=== PATIENT | female | born 1990 | race Caucasian/White ===

== ENCOUNTER → 2022-11-26 | Outpatient (CLI) | payer OTHER, SELFPAY ==
[2022-11-27 22:06] LABS: Chlamydia By Nucleic Acid AMP Negative (Negative); Gonococcus By Nucleic Acid AMP Negative (Negative)
[2022-11-29 13:06] LABS: HPV APTIMA, High Risk Negative (Negative)
== END | disposition home or self-care (01) ==
LOC: LABSPEC 11:05
PROVIDERS: Referring Provider Obstetrics & Gynecology; Visit Provider Obstetrics & Gynecology
DX: Z34.90 Encounter for supervision of normal pregnancy, unspecified, unspecified trimester (principal)
CPT/HCPCS: 87086; 87088; 87491; 87591; 87624; 88175; G0145

== ENCOUNTER → 2023-03-23 | Outpatient (CLI) | payer OTHER, SELFPAY ==
--- NOTE | 2023-03-23 10:38 | US_ITS ---
STUDY: SECOND AND THIRD TRIMESTER OBSTETRICAL ULTRASOUND - LIMITED REASON FOR EXAM: Female, 33 years old contractions/abd pain LMP: 09/11/2022. PRIOR ULTRASOUND: No relevant prior comparison study available TECHNIQUE: Transabdominal TECHNICAL QUALITY: Adequate. FINDINGS: Limited examination was performed. measurements were not obtained and anatomy was not evaluated at this time. There is a single intrauterine fetus. The fetus is in a cephalic presentation. There is demonstrated cardiac activity with a heart rate of 150 bpm. There is a normal amniotic fluid volume. The largest amniotic fluid pocket measures 5.6 cm. The amniotic fluid index (SAROJ) is 15 cm. The placenta is anterior in location and is not low lying. There are Grade 0 placental changes. The cervix measures 5.4 cm in length. US/OB Limited (No Biometrics) IMPRESSION: 1. Single live intrauterine fetus in cephalic presentation. 2. Anterior placenta without evidence of placental abruption or previa. 3. Normal SAROJ measuring 15 cm. Electronically Signed: Geovany Jay MD at 15:28 EDT ,
== END | disposition home or self-care (01) ==
PROVIDERS: Referring Provider Advanced Practice Midwife; Visit Provider Advanced Practice Midwife
DX: O47.02 False labor before 37 completed weeks of gestation, second trimester (principal); Z3A.24 24 weeks gestation of pregnancy
CPT/HCPCS: 76815; 87070; 87086; 87205

== ENCOUNTER → 2023-04-06 | Outpatient (CLI) | payer OTHER, SELFPAY ==
--- NOTE | 2023-04-06 10:55 | US_ITS ---
STUDY: SECOND AND THIRD TRIMESTER OBSTETRICAL ULTRASOUND - LIMITED REASON FOR EXAM: Female, 33 years old size larger than dates LMP: September 14, 2022. PRIOR ULTRASOUND: Comparison is made with prior study March 23, 2023. TECHNIQUE: Transabdominal TECHNICAL QUALITY: Adequate. FINDINGS: There is a single intrauterine fetus. The fetus is in a cephalic presentation. There is demonstrated cardiac activity with a heart rate of 148 bpm. There is a normal amniotic fluid volume. The largest amniotic fluid pocket measures 7.3 cm x 5.5 cm. The amniotic fluid index (SAROJ) is 14.8 cm. The placenta is anterior in location and is not low lying. There are Grade 1 placental changes. The cervix measures 4.9 cm in length. BIOMETRY: BPD: 7.56 on the: 30 weeks, 2 days HC: 27.64 cm: 30 weeks, 2 days AC: 28.76 cm: 32 weeks, 5 days FL: 5.73 cm: 30 weeks, 0 days Age by LMP: 29 weeks, 1 days. MORAIMA by LMP: June 21, 2023. age by current US: 30 weeks, 4 days. MORAIMA by current US: June 12, 2023 Estimated weight: 1812 grams, +/- 272 grams, 98 percentile. US/OB Limited With Biometrics IMPRESSION: Single live intrauterine gestation with a mean gestational age of 29 weeks and 1 day. The measurements obtained today fall within upper limits of normal. Electronically Signed: Pitre Zazueta MD at 15:13 EDT ,
== END | disposition home or self-care (01) ==
LOC: OPUS 10:53
PROVIDERS: Referring Provider Advanced Practice Midwife; Visit Provider Advanced Practice Midwife
DX: O26.849 Uterine size-date discrepancy, unspecified trimester (principal); O09.299 Supervision of pregnancy with other poor reproductive or obstetric history, unspecified trimester; Z3A.00 Weeks of gestation of pregnancy not specified
CPT/HCPCS: 76816

== ENCOUNTER → 2023-04-06 | Outpatient (CLI) | payer OTHER, SELFPAY ==
[2023-04-06 09:41] LABS: Absolute Lymphocyte Count 1.75 X10^3/uL (0.83-4.51); Absolute Neutrophil Count 8.1 X10^3/uL (2.0-7.7); Basophil# 0.03 X10^3/uL; Basophil% 0.3 % (0-1); Eosinophils% 0.9 % (0-5); Hematocrit 37.4 % (37-47); Hemoglobin 11.8 g/dL (12.0-15.0); Lymphocyte # 1.75 X10^3/ul (0.83-4.51); Mean Corp Hgb Conc 31.6 g/dL (32-36); Mean Corpuscular Hgb 26.9 pg (27.0-32.0); Mean Corpuscular Volume 85.4 fL (81-99); Mean Platelet Vol. 10.1 fl (6.2-12.0); Monocyte# 0.78 X10^3/uL; Monocyte% 7.1 % (0-10); NRBC Flagged by Analyzer 0 % (0-5); Neutrophil % 74.3 % (47-70); Platelet Count 227 K/mm3 (150-450); RBC Distribution Width CV 13.7 % (11.6-14.6); RBC Distribution Width SD 42.8 fl (35.1-43.9); Red Blood Count 4.38 M/mm3 (4.2-5.4); White Blood Count 10.9 K/mm3 (4.4-11.0)
[2023-04-06 10:06] LABS: Glucose Challenge Gest 1H 50g 127 mg/dL (70-140)
[2023-04-06 10:45] LABS: HIV - WCH Non-Reactive (Nonreactive); Hepatitis B Surface Antigen Non-Reactive (Nonreactive); Hepatitis C Antibody Non-Reactive (Nonreactive); Rubella IgG Reactive (Nonreactive); Syphilis Antibodies Non-reactive
== END | disposition home or self-care (01) ==
LOC: LAB 08:11
PROVIDERS: Obstetrics & Gynecology; Referring Provider Registered Nurse; Visit Provider Registered Nurse
DX: Z34.90 Encounter for supervision of normal pregnancy, unspecified, unspecified trimester (principal)
CPT/HCPCS: 36415; 82950; 85025; 86703; 86762; 86780; 86803; 86850; 86900; 86901; 87340

== ENCOUNTER → 2023-04-19 | Outpatient (CLI) | payer OTHER, SELFPAY | END | disposition home or self-care (01) | PROVIDERS: Referring Provider Registered Nurse; Visit Provider Registered Nurse | DX: O23.40 Unspecified infection of urinary tract in pregnancy, unspecified trimester (principal); Z3A.00 Weeks of gestation of pregnancy not specified | CPT/HCPCS: 87086; 87088 ==

== ENCOUNTER 2023-05-07 16:40 | Outpatient (CLI) | payer OTHER, SELFPAY ==
[2023-05-07 16:53] VITALS: BP 126/74; PULSE 114
[2023-05-07 17:58] VITALS: BMI 42.2
--- NOTE | 2023-05-07 18:09 | OB.TRI.NOTE ---
HPI - General General Date of Service: 05/07/23 Chief Complaint: rule out labor HPI Narrative JASON ATWOOD, is a 33 F who presents at 33.4 with inconsistent contractions/tightening, was seen in the office by Garfield Gaffney and found to be 2 cm. sent to for prolonged monitoring and evaluation for labor. Maternal Data Information MORAIMA Calculator Estimated Delivery Date Method Current WG Current Estimate 06/21/23 Ultrasound #1 33w 4d Other Estimates 06/27/23 LMP (Certain) 32w 5d PFSH PFSH Medical History Hx of one miscarriage Hx of hemorrhage, currently Hx of transfusion of whole blood Home Medications Lactobacillus acidophilus and rhamnosus 15 billion cell capsule (Probiotic) cap PO 11/10/22 [History Last Taken Unknown] cyanocobalamin-liver extract tablet tab PO 11/10/22 [History Last Taken Unknown] magnesium glycinate 400 mg PO DAILY 11/10/22 [History Last Taken Unknown] magnesium malate, chelate 400 mg PO DAILY 11/10/22 [History Last Taken Unknown] Allergy/AdvReac Type Severity Reaction Status Date / Time progesterone Allergy Intermediate Hives Verified 05/07/23 11:01 Surgical History Previous section [place] teeth extracted Social History adopted: No household members: spouse and children number of children: 5 current occupational status: unemployed current occupation: homemaker current occupational exposures/hazards: No pets and animals: Yes pets and animals: dog(s) history of recent travel: No sexually active: Yes Smoking Status: Never smoker alcohol intake: current details: Not while substance use type: does not use well-balanced diet: daily or most days caffeine: Yes Type: coffee Number of servings: 1 eating out: 1-3 times/week during the past year weight has: increased > 10 lbs what type of physical activity do you participate in: weight training and other details: cardio- dance, biking, walking frequency: 5-6 times per week duration: 15-30 minutes/day zaynab/restorationist: Gnosticist seatbelt use: always do you feel safe at home: Yes 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 Date Name GA/Weeks Outcome Route Bth Weight Infant Gen Labor Lgth Anesthesia Del Locatn Provider FOB 12/18/15 Tamiko live - full term 8#9oz Female epidural [facility] 02/16/17 Nereyda live - full term 8#10oz Female epidural [facility] 08/02/18 Margi-Twin Fraternal(di-di) live - full term 6#10oz Female spinal [facility] 08/02/18 Ruth - Twin(Saofgroxz-Ci-Zr) 37 live - full term 6#9 oz Female [facility] 09/14/19 miscarriage 6 wks 07/18/20 Makaia 40 live - full term 11#3oz Female none [facility] Visit Details Expected Delivery Route/Plan patient counseled regarding risks/benefits of trial of labor versus repeat . ACOG/uptodate education given to patient. [] % likelihood of success per calculator TOLAC consent form signed: [] Labor Preferences- CB/BF classes: [] labor support person: [] labor intervention preferences: wanting a physiological pain management options preferred: [] cut cord/dad catch: [] : [] PP control planned: [] discussed possible routes of delivery and associated risks: [] special requests: [] Plans Covid status: [] Flu vaccine: [] Tdap vaccine: [] Rhogam: [] LARC form signed: [] Problem list reviewed and updated with the most current plan of care details and appropriate orders placed. Relevant counseling for the gestational age provided. Continue routine care and follow up unless otherwise noted in visit notes/problem list details OB Flowsheet Initial Weight: Not Recorded Date <del>?</del> EGA Weight BP Urine Prot <del>?</del> Glucose FHR FuHt Pres Dilation <del>?</del> Effaced St Visit Note 11/26/22 <del>?</del> 10w 3d 237 lb 6 oz 112/74 <del>?</del> 180 <del>?</del> SM- CRL cons with LMP SM- CRL NOT cons with LMP 12/25/22 <del>?</del> 14w 4d 237 lb 2 oz 110/73 Negative <del>?</del> Negative 160 <del>?</del> SM- patient consideirng ergonomics consultant, asking about timing between visits. discussed flexibility of 4-6 weeks for appoitnemt in 1st or 2nd trimester SM- patient considering ergonomics consultant, asking about timing between visits. discussed flexibility of 4-6 weeks for appoitnemt in 1st or 2nd trimester 01/19/23 <del>?</del> 18w 1d 238 lb 2 oz 112/68 Negative <del>?</del> Negative 163 <del>?</del> MH-No VB or nausea. denies concerns. US today 03/01/23 <del>?</del> 24w 0d 248 lb 120/78 Negative <del>?</del> Negative 160 <del>?</del> LC- no vb/ctx/lof. good fm. 28 week labs today, using fresh test. 03/23/23 <del>?</del> 27w 1d 251 lb 6 oz 117/72 Negative <del>?</del> Negative 158 30 Cephalic 0 <del>?</del> 0 KW-no vb/lof. good fm. having strong contractions on and off the last week. US done and reassuring findings. Urine culture done. KW-no vb/lof. good fm. having strong contractions on and off the last week. no changes in vaginal discharge, reports adequate hydration. US done and reassuring findings. Urine culture done. KW-no vb/lof. good fm. having strong contractions on and off the last week. no changes in vaginal discharge, reports adequate hydration. US done and reassuring findings. Urine and vaginal culture done. Discussed evaluation in WP. Declines at this time as she is not manuela now and feeling good fm. plans to follow up in 2 weeks. 04/06/23 <del>?</del> 29w 1d 256 lb 6 oz 126/79 Negative <del>?</del> Negative 155 32 <del>?</del> KW- no vb/lof/ctx. good fm. no longer having strong contractions. feeling good. labs reviewed. Growth US ordered 04/19/23 <del>?</del> 31w 0d 259 lb 119/76 Negative <del>?</del> Negative 150 33 <del>?</del> LC- no lof/ctx/vb. good fm. obtaining growth at 36 weeks.hx of LGA. urine culture sent for urinary urgency and pressure. 05/07/23 <del>?</del> 33w 4d 259 lb 8 oz 128/82 Negative <del>?</del> Negative 150 38 2 <del>?</del> 40 -3 KW-no vb/lof/regular ctx. having ctx randomly throughout week, no urinary sx. has 36 week US scheduled. Discussed in depth Betamethasone injection for well being. Would like to discuss with before agreeing. Start weekly visits. Not currently manuela-declines NST, having good movement. KW-no vb/lof/regular ctx. having ctx randomly throughout week, no urinary sx. has 36 week US scheduled additional US ordered for S>D. Discussed in depth Betamethasone injection for well being. Would like to discuss with before agreeing. Start weekly visits. Not currently manuela-declines NST, having good movement. KW-no vb/lof/regular ctx. having ctx randomly throughout week, no urinary sx. has 36 week US scheduled additional US ordered for S>D. Discussed in depth Betamethasone injection for well being. Would like to discuss with before agreeing. Start weekly visits. Not currently manuela-declines NST, having good movement. Agrees to evaluation in when is off work. Physical Exam Const alert and no apparent distress Resp normal respiratory effort, no retractions and no use of accessory muscles GI normal to inspection, nondistended, normoactive bowel sounds external exam normal Manual OB Exam: dilated 0.5, effaced 20 and station -4 Uterus Palpation: uterus fundus soft Back/Spine no CVA tenderness Extremity normal to inspection and full ROM Skin no rashes or lesions noted Psych mental status grossly normal NST FHR Rate Baby B Baseline: 140 Variability:: Moderate Accelerations:: 15 x 15 Decelerations:: None NST Reactive:: Yes Uterine Activity:: x1 contraction Assessment & Plan (1) contractions: COMMENT: no change in cervical exam. reactive nst. d/c home with labor precautions. (2) Uterine size date discrepancy : COMMENT: at 29 weeks-98% 1812g nl GDM labs PLAN: to obtain outpatient growth with SAROJ next week (3) History of macrosomia in in prior , currently : COMMENT: 11+ lb infant 36 week US ordered (4) Uterine contractions: PLAN: Plan Patient presents for triage evaluation secondary to contractions, improved cervical exam from previous exam. 0.5/20/-4. very posterior FHT: Moderate variability reactive no decelerations category I tracing [place]: x1 Contractions Assessment and plan: Reactive NST, reassuring maternal and status patient discharged to home to follow-up in office on wednesday. See problem list details for additional plan information. Charges/Coding Procedures Urinary/Genital [id number]: 27515-21 non-stress test Interp Multi Select Codes Visit Charges Office Visit/Consults: 05894 OV L3 Est
== END 2023-05-07 18:15 | disposition home or self-care (01) ==
LOC: WPOUT 16:47 → WP 16:48
PROVIDERS: Referring Provider Registered Nurse; Visit Provider Registered Nurse
DX: O47.03 False labor before 37 completed weeks of gestation, third trimester (principal); Z3A.33 33 weeks gestation of pregnancy
CPT/HCPCS: 59025; 59050

== ENCOUNTER → 2023-05-24 | Outpatient (CLI) | payer OTHER, SELFPAY ==
--- NOTE | 2023-05-24 09:14 | US_ITS ---
STUDY: SECOND AND THIRD TRIMESTER OBSTETRICAL ULTRASOUND - LIMITED REASON FOR EXAM: Female, 33 years old uterine size -- 36 weeks LMP: September 11, 2022. PRIOR ULTRASOUND: Comparison is made with prior study April 06, 2023. TECHNIQUE: Transabdominal TECHNICAL QUALITY: Adequate. FINDINGS: There is a single intrauterine fetus. The fetus is in a cephalic presentation. There is demonstrated cardiac activity with a heart rate of 153 bpm. There is a normal amniotic fluid volume. The largest amniotic fluid pocket measures 7.5 cm. The amniotic fluid index (SAROJ) is 15.7 cm. The placenta is anterior in location and is not low lying. There are Grade 1 placental changes. The cervical length was not measured due to the head positioning. BIOMETRY: BPD: 9.94 cm: 40 weeks, 6 days HC: 33.43 cm: 38 weeks, 2 days AC: 36.25 cm: 40 weeks, 1 days FL: 7.1 cm: 36 weeks, 3 days Age by LMP: 36 weeks, 3 days. MORAIMA by LMP: June 18, 2023. age by prior US: 37 weeks, 2 days. MORAIMA by prior US: June 12, 2023. age by current US: 39 weeks, 0 days. MORAIMA by current US: May 31, 2023. Estimated weight: 3828 grams, +/- 574 grams, 99 percentile. US/OB Limited With Biometrics IMPRESSION: Single live intrauterine gestation with a mean gestational age of 37 weeks and 2 days. The measurements obtained today fall within the upper limits of normal. Electronically Signed: Piter Zazueta MD at 13:40 EST ,
[2023-05-24 18:49] LABS: Group B Strep DNA By PCR Negative (Negative); Internal Control PASS; Probe Check PASS; Specimen Processing Control PASS
== END | disposition home or self-care (01) ==
PROVIDERS: Registered Nurse; Referring Provider Advanced Practice Midwife; Visit Provider Advanced Practice Midwife
DX: Z34.90 Encounter for supervision of normal pregnancy, unspecified, unspecified trimester (principal)
CPT/HCPCS: 76816; 87081; 87653

== ENCOUNTER → 2023-06-10 | Outpatient (CLI) | payer OTHER, SELFPAY ==
[2023-06-10 10:13] LABS: ROM Internal Control Test YES-OK TO RESULT pt. (Internal QC); ROM Patient Test Negative (Negative); Record Kit Lot#, ROM+ K1374
== END | disposition home or self-care (01) ==
PROVIDERS: Referring Provider Advanced Practice Midwife; Visit Provider Advanced Practice Midwife
DX: N89.8 Other specified noninflammatory disorders of vagina (principal)
CPT/HCPCS: 84112

== ENCOUNTER 2023-06-15 07:10 | Inpatient (IN) | payer OTHER, SELFPAY ==
[2023-06-15] VITALS (26 sets, daily range): BP systolic 117–159; BP diastolic 62–89; PULSE 91–104; TEMP 36.1–36.7; O2SAT 93–98; BMI 43.6
--- OUTSIDE RECORDS SUMMARY | 2023-06-15 07:18 | XMS RPT_ITS | CCD ---
Author Name Unknown Address [address] [place] [address] Organization [facility] Care Team Providers Care Personnel Worker Name Role Phone Dot Rutherfordkatherinematilde Mark Unavailable Unavailable UNKNOWN, PROVIDER Unavailable Unavailable Pauline Alfaro Unavailable Unavailable Lynda Oquendo Unavailable Unavailable Lynda Oquendo Unavailable Unavailable Damian BLISS.Paco CARBALLO Primary Care Provide r PACO SALGADO Primary Care Unavailable RUFINO LANDAVERDE Consulting Unavailable MERCEDES HOPKINS M.D. Attending Unavail able SARA PRIMARY MD ROBERTO Primary Care Unavailable HELENA SILVA Attending Unavailable MERCEDES HOPKINS Referring Unavailabl e Medications Completed/Discontinued Medications Medication Drug Class(es) Dates Sig (Normalized) Sig (Original) azithromycin 250 mg oral tablet (1 source) Macrolide Antimicrobial Start: 09-07-2022 End: 09-07-2022 take 2 tablets by mouth once, then take 1 tablet by mouth once daily azithromycin (ZITHROMAX Z-CARLEE) 250 mg tablet Indications: Right acute serous otitis media, recurrence not specified Take 2 tablets by mouth one time only for 1 dose. THEN 1 TAB DAILY FOR 4 DAYS. 6 tablet 0 09/07/2022 09/07/2022 Problems Active Problems Problem Classification Problem Date Documented Da te Episodic/Chronic Anxiety disorders (3 sources) Mixed anxiety and depressive disorder; Translations: [Other specified anxiety disorders] Onset: 07-28-2019 01-05-2020 Chronic Otitis media and related conditions (1 source) Acute serous otitis media of right ear; Translations: [Acute serous otitis media, right ear] Episodic Unclassified (1 source) Unknown / UNK(Unknown) Onset: 01-30-2017 Past or Other Problems Problem Classification Problem Date Documented Da te Episodic/Chronic Abdominal pain (1 source) Abdominal pain Onset: 08-22-2022 Episodic Other gastrointestinal disorders (3 sources) Finding of abdomen; Translations: [Other specified symptoms and signs involving the digestive system and abdomen] Onset: 01-04-2019 01-04-2019 Episodic Unclassified (1 source) /CONTRACT IONS, VAGINAL PAIN Onset: 01-30-2017 Results Test Name Value Interpretation Reference Range Facil ity Vital Signs Date Time Vital Sign Value Performing Clinician Faci lity 09-07-2022 15:49-0400 Body height 167.6 cm Leelee Conteh APRN.STEAMBOAT INSPECTOR Work Phone: [facility] 09-07-2022 15:49-0400 Body temperature 98.29 [degF] Leelee Conteh APRN.STEAMBOAT INSPECTOR Work Phone: [facility] 09-07-2022 15:49-0400 Body weight 113.4 kg Leelee Conteh APRN.CNP Work Phone: [facility] 09-07-2022 15:49-0400 Diastolic blood pressure 81 mm[Hg] Leelee Conteh APRN.STEAMBOAT INSPECTOR Work Phone: [facility] 09-07-2022 15:49-0400 Heart rate 115 /min Leelee Conteh APRN.STEAMBOAT INSPECTOR Work Phone: [facility] 09-07-2022 15:49-0400 Respiratory rate 16 /min Leelee Conteh APRN.STEAMBOAT INSPECTOR Work Phone: [facility] 09-07-2022 15:49-0400 SaO2% (BldA) [Mass fraction] 97 % Leelee Conteh APRN.STEAMBOAT INSPECTOR Work Phone: [facility] 09-07-2022 15:49-0400 Systolic blood pressure 115 mm[Hg] Leelee Conteh APRN.STEAMBOAT INSPECTOR Work Phone: [facility] Encounters Encounter Date Encounter Type Care Provider Facility Start: 01-19-2023 End: 01-19-2023 ambulatory MD [facility] Start: 12-14-2022 ambulatory MERCEDES HOPKINS Facility:[facility] Start: 12-14-2022 End: 12-14-2022 Subsequent hospital visit by physician Provider [facility] HOD Procedures Date Procedure Procedure Detail Performing Clinician Start: 12-14-2022 CBC + DIFF Mercedes red Work Phone: Start: 12-14-2022 GLUCOSE 1HR ([facility]) Pineda Hopkins Work Phone: Start: 12-14-2022 HEP B SURF AG SCRN Vniay Hopkins Work Phone: Start: 12-14-2022 HEP C VIRUS ANTIBODY ([facility]) Mercedes Weldonyoavmarcelo Work Phone: Start: 12-14-2022 HIV RAPID ([facility]WR[facility]) Zeinab n Shirazyoavmarcelo Work Phone: Start: 12-14-2022 RPR SCREEN Mercedes red Work Phone: Start: 12-14-2022 RUBELLA IGG AB Mercedes floyd Work Phone: Start: 12-14-2022 TYPE + SCREEN Mercedes Hopkins Work Phone: Start: 08-22-2022 Ct abdomen & pelvis w/contrast material Rufino Landaverde Work Phone: Start: 08-22-2022 BASIC METABOLIC PNL Chung in [place] Landaverde Work Phone: Start: 08-22-2022 CBC + DIFF Rufino Landaverde Work Phone: Start: 08-22-2022 HEPATIC FUNCTION PNL Ke ana rBavo Landaverde Work Phone: Start: 08-22-2022 LIPASE BLD Rufino nguyễn [employer] Work Phone: Plan of Treatment Date Care Activity Detail Author Start: 10-28-2025 Urine microalbumin profile [facility] Start: 05-07-2023 PAP TESTING PAP TESTING [facility] Start: 02-05-2023 Influenza vaccination [facility] Start: 2022 HPV TESTING HPV TESTING [facility] Start: 02-05-2022 Influenza vaccination INFLUENZA (#1) [facility] Start: 2010 HEPATITIS C SCREENING HEPATITIS C SC LORRAINE [facility] Start: 2010 [facility] Start: 1992 COVID-19 VACCINE (#1) COVID-19 VACCI NE (#1) [facility] Start: 1992 HEPATITIS B (1 of 3 - 3-dose series) HEPATITIS B (1 of 3 - 3-dose series) [facility] Start: 1992 Hepatitis B Vaccine (1 of 3 - 3-dose series) Hepatitis B Vaccine (1 of 3 - 3-dose series) [facility] Immunizations Immunization Date Immunization Notes Care Provider Jae vera 10-29-2015 tetanus toxoid, redu nir diphtheria toxoid, and acellular pertussis vaccine, adsorbed Provider [facility] Payers Date Payer Category Payer Unknown [employer] PPO [id number] 2020-[facility] [phone] [address] [place] [address] PPO [id number] 2020 Unknown [id number] 1992 Unknown [id number] [employer] ( and others) [id number] [employer] ( and others) [id number] [employer] ( and others) [id number] Unknown [id number] Unknown [id number] Social History Date Type Detail Facility Start: 12-23-2018 Tobacco smoking stat us AZIS Never smoked tobacco [facility] Start: 12-23-2018 Tobacco use and exposure Smokeless tobacco non-user [facility] Start: 05-16-2021 End: 09-07-2022 Alcohol intake Current drinker of alcohol (finding) [facility] Start: 12-23-2018 Alcohol Comment [facility] Start: 1990 Sex Assigned At Not on file [facility] Start: 05-15-2020 End: 09-07-2022 History of Social function [facility] Work Phone: Start: 05-15-2020 End: 09-07-2022 Tobacco use panel [facility] Work Phone: Adult Depression Screening Assessment 0 [facility] Work Phone: Progress note 09-07-2022 Note Date & Type Note Facility 09-07-2022 Note HNO ID: [id number] Author: Leelee Conteh APRN.STEAMBOAT INSPECTOR Service: ? Author Type: Nurse Practitioner Type: Progress Notes Filed: 09/07/2022 4:08 PM Note Text: September 07, 2022 Subjective Chief Complaint: Ear Problem (Sx started x 2 days with itchy rt ear and now it is painful. No otc meds) HPI: Jason Atwood is a 32 year old female who presents today for 2-day history of right ear itchiness. Mother arrives with 2 daughters that present the same way. Mother states that the 2 daughters first complained of ear itching and now pain. Mother states that she is currently in the itchy stage. He is concerned that the itchiness will turn into an infection. Sleeps with 1 pillow at night. [facility] Denies any fever, runny nose, sore throat, cough, chest pain, shortness of breath, abdominal pain, nausea, vomiting, diarrhea. No [id number] medicines prior to arrival. History reviewed. No pertinent past medical history. PAST SURGICAL HISTORY Procedure Laterality Date DELIVERY ONLY 08/02/2018 Twins COLONOSCOPY 01/03/2019 TOOTH EXTRACTION FAMILY HISTORY Problem Relation Age of Onset other (Bladder Cancer) Mother History of No Known Problems Father Colon Cancer Paternal Grandmother Social History Tobacco Use Smoking status: Never Smokeless tobacco: Never Vaping Use Vaping Use: Never used Substance Use Topics Alcohol use: Yes Comment: Occasional Drug use: Never ALLERGIES No Known Allergies Immunization History Administered Date(s) Administered tetanus diphtheria pertussis (Tdap) vaccine, age 7+ yr (ADACEL, BOOSTRIX) 10/29/2015 Current Medications: azithromycin (ZITHROMAX Z-CARLEE) 250 mg tablet Take 2 tablets by mouth one time only for 1 dose. THEN 1 TAB DAILY FOR 4 DAYS. Review of Systems Constitutional: Negative for chills, fever and malaise/fatigue. HENT: Positive for ear pain (right ear itchy). Negative for congestion. Eyes: Negative. Respiratory: Negative. Cardiovascular: Negative. Gastrointestinal: Negative. Genitourinary: Negative. Musculoskeletal: Negative. Skin: Negative for rash. Neurological: Negative. Objective BP 115/81 Pulse 115 Temp (Src) 98.3 (Oral) Resp 16 Ht 5' 6 (1.68m) Wt 250 lb (113.4kg) SpO2 97% LMP 09/01/2022 BMI 40.37 kg/(m2). HR 98 Physical Exam Vitals reviewed. Constitutional: General: She is not in acute distress. Appearance: Normal appearance. She is not ill-appearing, toxic-appearing or diaphoretic. HENT: Head: Normocephalic and atraumatic. Right Ear: Drainage (white drainage at base of TM) present. There is no impacted cerumen. No foreign body. No mastoid tenderness. Tympanic membrane is bulging (serous fluid noted behind TM). Tympanic membrane is not erythematous. Left Ear: Tympanic membrane, ear canal and external ear normal. There is no impacted cerumen. Nose: Rhinorrhea present. Mouth/Throat: Mouth: Mucous membranes are moist. Pharynx: Oropharynx is clear. No oropharyngeal exudate or posterior oropharyngeal erythema. Eyes: General: Right eye: No discharge. Left eye: No discharge. Extraocular Movements: Extraocular movements intact. Conjunctiva/sclera: Conjunctivae normal. Pupils: Pupils are equal, round, and reactive to light. Cardiovascular: Rate and Rhythm: Normal rate and regular rhythm. Heart sounds: Normal heart sounds. No murmur heard. No friction rub. No gallop. Pulmonary: Effort: Pulmonary effort is normal. No respiratory distress. Breath sounds: Normal breath sounds. No stridor. No wheezing, rhonchi or rales. Chest: Chest wall: No tenderness. Musculoskeletal: Cervical back: Neck supple. Skin: General: Skin is warm and dry. Capillary Refill: Capillary refill takes less than 2 seconds. Neurological: Mental Status: She is alert and oriented to person, place, and time. Psychiatric: Mood and Affect: Mood normal. Behavior: Behavior normal. Thought Content: Thought content normal. Judgment: Judgment normal. ASSESSMENT/PLAN: 1. Right acute serous otitis media, recurrence not specified - ICD9: 381.01, ICD10: H65.01 - Will begin treatment with Zithromax pack as directed - The patient should also be given OTC cough and cold meds as needed, warm salt water gargles, throat lozenges and/or OTC throat spray as needed, and nasal saline gtts and suction prn for the first 5-7 days of treatment. - Supportive care with plenty of fluids, rest, and analgesia prn. - Follow up in 3-5 days if symptoms persist or worsen. - AZITHROMYCIN 250 MG TABLET Leelee Conteh APRN.CNP [facility] History of Present illness Narrative 09-07-2022 Leelee Conteh APRN.KAIT - 09/07/2022 4:04 PM EDT Note Date & Type Note Facility 09-07-2022 History of Presen t illness Narrative September 07, 2022 Subjective Chief Complaint: Ear Problem (Sx started x 2 days with itchy rt ear and now it is painful. No otc meds) HPI: Jason Atwood is a 32 year old female who presents today for 2-day history of right ear itchiness. Mother arrives with 2 daughters that present the same way. Mother states that the 2 daughters first complained of ear itching and now pain. Mother states that she is currently in the itchy stage. He is concerned that the itchiness will turn into an infection. Sleeps with 1 pillow at night. [facility]. Denies any fever, runny nose, sore throat, cough, chest pain, shortness of breath, abdominal pain, nausea, vomiting, diarrhea. No [id number] medicines prior to arrival. History reviewed. No pertinent past medical history. PAST SURGICAL HISTORY Procedure Laterality Date DELIVERY ONLY 08/02/2018 Twins COLONOSCOPY 01/03/2019 TOOTH EXTRACTION FAMILY HISTORY Problem Relation Age of Onset other (Bladder Cancer) Mother History of No Known Problems Father Colon Cancer Paternal Grandmother Social History Tobacco Use Smoking status: Never Smokeless tobacco: Never Vaping Use Vaping Use: Never used Substance Use Topics Alcohol use: Yes Comment: Occasional Drug use: Never ALLERGIES No Known Allergies Immunization History Administered Date(s) Administered tetanus diphtheria pertussis (Tdap) vaccine, age 7+ yr (ADACEL, BOOSTRIX) 10/29/2015 Current Medications: azithromycin (ZITHROMAX Z-CARLEE) 250 mg tablet Take 2 tablets by mouth one time only for 1 dose. THEN 1 TAB DAILY FOR 4 DAYS. Review of Systems Constitutional: Negative for chills, fever and malaise/fatigue. HENT: Positive for ear pain (right ear itchy). Negative for congestion. Eyes: Negative. Respiratory: Negative. Cardiovascular: Negative. Gastrointestinal: Negative. Genitourinary: Negative. Musculoskeletal: Negative. Skin: Negative for rash. Neurological: Negative. Objective BP 115/81 Pulse 115 Temp (Src) 98.3 (Oral) Resp 16 Ht 5' 6 (1.68m) Wt 250 lb (113.4kg) SpO2 97% LMP 09/01/2022 BMI 40.37 kg/(m^2). HR 98 Physical Exam Vitals reviewed. Constitutional: General: She is not in acute distress. Appearance: Normal appearance. She is not ill-appearing, toxic-appearing or diaphoretic. HENT: Head: Normocephalic and atraumatic. Right Ear: Drainage (white drainage at base of TM) present. There is no impacted cerumen. No foreign body. No mastoid tenderness. Tympanic membrane is bulging (serous fluid noted behind TM). Tympanic membrane is not erythematous. Left Ear: Tympanic membrane, ear canal and external ear normal. There is no impacted cerumen. Nose: Rhinorrhea present. Mouth/Throat: Mouth: Mucous membranes are moist. Pharynx: Oropharynx is clear. No oropharyngeal exudate or posterior oropharyngeal erythema. Eyes: General: Right eye: No discharge. Left eye: No discharge. Extraocular Movements: Extraocular movements intact. Conjunctiva/sclera: Conjunctivae normal. Pupils: Pupils are equal, round, and reactive to light. Cardiovascular: Rate and Rhythm: Normal rate and regular rhythm. Heart sounds: Normal heart sounds. No murmur heard. No friction rub. No gallop. Pulmonary: Effort: Pulmonary effort is normal. No respiratory distress. Breath sounds: Normal breath sounds. No stridor. No wheezing, rhonchi or rales. Chest: Chest wall: No tenderness. Musculoskeletal: Cervical back: Neck supple. Skin: General: Skin is warm and dry. Capillary Refill: Capillary refill takes less than 2 seconds. Neurological: Mental Status: She is alert and oriented to person, place, and time. Psychiatric: Mood and Affect: Mood normal. Behavior: Behavior normal. Thought Content: Thought content normal. Judgment: Judgment normal. ASSESSMENT/PLAN: 1. Right acute serous otitis media, recurrence not specified - ICD9: 381.01, ICD10: H65.01 - Will begin treatment with Zithromax pack as directed - The patient should also be given OTC cough and cold meds as needed, warm salt water gargles, throat lozenges and/or OTC throat spray as needed, and nasal saline gtts and suction prn for the first 5-7 days of treatment. - Supportive care with plenty of fluids, rest, and analgesia prn. - Follow up in 3-5 days if symptoms persist or worsen. - AZITHROMYCIN 250 MG TABLET Leelee Conteh APRN.CNP documented in this encounter [facility] Instructions 09-07-2022 Patient Instructions Note Date & Type Note Facility 09-07-2022 Instructions Leelee Conteh APRN.CNP - 09/07/2022 4:01 PM EDT -Drink plenty of non-caffeinated fluids! -For nasal congestion/ear fullness: Flonase -take as directed. Use a nasal saline rinse (netti pot/squeeze bottle) couple times a day. -For sore throat/cough: gargle with salt water, hot tea and honey, cool mist vaporizer, and cough drops -Prop yourself up with additional pillows at night -Vicks Vapor rub to chest at night -Any difficulty breathing or chest pain - go to Emergency Department documented in this encounter [facility] Evaluation note Note Date & Type Note Facility documented in this encounter [facility] Summary Purpose Family History No Family History Records FoundNo Family History Records FoundNo Family History Records FoundNo Family History Records FoundNo Family History Records Found Advance Directives No Advanced Directives Records FoundNo Advanced Directives Records FoundNo Advanced Directives Records FoundNo Advanced Directives Records FoundNo Advanced Directives Records Found Additional Source Comments INFORMATION SOURCE (unrecogn ized section and content) DATE CREATED AUTHOR AUTHOR'S ORGANIZ ATION 09/07/2020 [facility] ([place]) DATE CREATED AUTHOR AUTHOR'S ORGANIZ ATION 09/10/2022 [facility] DATE CREATED AUTHOR AUTHOR'S ORGANIZ ATION 12/23/2022 [facility] DATE CREATED AUTHOR AUTHOR'S ORGANIZ ATION 01/21/2023 [facility] Source Comments (unrecognize d section and content) In the event this informatio n is protected by the Federal Confidentiality of Alcohol and Drug Abuse Patient Records regulations: The Federal rules restrict any use of the information to criminally investigate or prosecute any alcohol or drug abuse patient.[facility] the event this information is protected by the Federal Confidentiality of Alcohol and Drug Abuse Patient Records regulations: The Federal rules restrict any use of the information to criminally investigate or prosecute any alcohol or drug abuse patient.[facility] the event this information is protected by the Federal Confidentiality of Alcohol and Drug Abuse Patient Records regulations: The Federal rules restrict any use of the information to criminally investigate or prosecute any alcohol or drug abuse patient.[facility] Care Teams (unrecognized sec tion and content) Personnel Worker Relationship Specialty Start Date End Date Paco Salgado, IZAIAH.STEAMBOAT INSPECTOR [address] [place], [place] [id number] PCP - General Family Medicine 12/23/18 Personnel Worker Relationship Specialty Start Date End Date Paco Salgado AVIATION PROJECT MANAGER.STEAMBOAT INSPECTOR [address] [place] [address] PCP - General Family Medicine 12/23/18 Reason for Visit (unrecogniz ed section and content) FOR RECORDS PERTAINING TO PATIENTS WHO ARE OR HAVE BEEN ENROLLED IN A CHEMICAL DEPENDENCY/SUBSTANCEABUSE PROGRAM, SOME INFORMATION MAY BE OMITTED. This clinical summary was aggregated from multiple sources. Caution should be exercised in using it in the provision of clinical care. This summary normalizes information from multiple sources, and as a consequence, information in this document may materially change the coding, format and clinical context of patient data. In addition, data may be omitted in some cases. CLINICAL DECISIONS SHOULD BE BASED ON THE PRIMARY CLINICAL RECORDS. [facility] provides no warranty or guarantee of the accuracy or completeness of information in this document.
--- NOTE | 2023-06-15 07:37 | HP.PCM.OB_ITS ---
HPI - General General Date of Admission: 06/15/23 Date of Service: 06/15/23 HPI Narrative JASON ATWOOD, is a 33 F 39.1 weeks who presents for 39 week IOL. EFW 4578, Hx one C/S for twin and 1 successful , and 3 hemorrhages after delivery. Maternal Data Information MORAIMA Calculator Estimated Delivery Date Method Current WG Current Estimate 06/21/23 Ultrasound #1 39w 1d Other Estimates 06/27/23 LMP (Certain) 38w 2d Final MORAIMA: 06/21/23 Final MORAIMA Source: US >20 weeks Gestational age: 39.1 weeks PFSH PFSH Medical History Hx of one miscarriage Hx of hemorrhage, currently Hx of transfusion of whole blood Home Medications Lactobacillus acidophilus and rhamnosus 15 billion cell capsule (Probiotic) 1 cap PO 11/10/22 [History Last Taken 06/14/23 08:00] cyanocobalamin-liver extract tablet 1 tab PO 11/10/22 [History Last Taken 06/14/23 08:00] mecobalamin (vitamin B12) 1,000 mcg chewable tablet (B12 Active) 1,000 mcg PO DAILY nausea 06/15/23 [History Last Taken 06/14/23 08:00] Allergy/AdvReac Type Severity Reaction Status Date / Time progesterone Allergy Intermediate Hives Verified 06/15/23 07:45 Surgical History Previous section [place] teeth extracted Social History adopted: No household members: spouse and children number of children: 5 current occupational status: unemployed current occupation: homemaker current occupational exposures/hazards: No pets and animals: Yes pets and animals: dog(s) history of recent travel: No sexually active: Yes Smoking Status: Never smoker alcohol intake: current details: Not while substance use type: does not use well-balanced diet: daily or most days caffeine: Yes Type: coffee Number of servings: 1 eating out: 1-3 times/week during the past year weight has: increased > 10 lbs what type of physical activity do you participate in: weight training and other details: cardio- dance, biking, walking frequency: 5-6 times per week duration: 15-30 minutes/day zaynab/mormon: Pentecostal seatbelt use: always do you feel safe at home: Yes additional social history: Charlie- hotel engineer History 6 Elective abortions Hx Para 4 Spontaneous abortions 1 Hx # Term Pregnancies Ectopic pregnancies Hx # Pregnancies Multiple births 1 # of living children 5 Past Pregnancies Del. Date Name GA/Weeks Outcome Route Bth Weight Infant Gen Labor Lgth Anesthesia Del Locatn Provider FOB 12/18/15 Tamiko live - full term 8#9oz Female epidural [facility] 02/16/17 Nereyda live - full term 8#10oz Female epidural [facility] 08/02/18 Margi-Twin Fraternal(di-di) live - full term C -section 6#10oz Female spinal [facility] 08/02/18 Ruth - Twin(Jjalceijh-Zb-Cr) 37 live - full term 6#9 oz Female spinal [facility] 09/14/19 miscarriage 6 wks 07/18/20 Makaia 40 live - full term 11#3oz Female none [facility] Visit Details Expected Delivery Route/Plan patient counseled regarding risks/benefits of trial of labor versus repeat . ACOG/uptodate education given to patient. [] % likelihood of success per calculator TOLAC consent form signed: yes Labor Preferences- CB/BF classes: [] labor support person: [] labor intervention preferences: wanting a physiological pain management options preferred: [] cut cord/dad catch: [] : yes PP control planned: [] discussed possible routes of delivery and associated risks: [] special requests: [] Plans Covid status:declines Flu vaccine: declines Tdap vaccine: declines Rhogam: na LARC form signed: completed. Problem list reviewed and updated with the most current plan of care details and appropriate orders placed. Relevant counseling for the gestational age provided. Continue routine care and follow up unless otherwise noted in visit notes/problem list details OB Flowsheet Initial Weight: Not Recorded Date -?-?-?-?-?-?-?-?-?-?-?-?- EGA Weight BP Urine Prot -?-?-?-?-?-?-?-?-?-?-?-?- Glucose FHR FuHt Pres Dilation -?-?-?-?-?-?-?-?-?-?-?-?- Effaced St Visit Note 11/26/22 -?-?-?-?-?-?-?-?-?-?-?-?- 10w 3d 237 lb 6 oz 112/74 Nega tive -?-?-?-?-?-?-?-?-?-?-?-?- Negative 180 -?-?-?-?-?-?-?-?-?-?-?-?- SM- CRL cons wit h LMP SM- CRL NOT cons with LMP 12/25/22 -?-?-?-?-?-?-?-?-?-?-?-?- 14w 4d 237 lb 2 oz 110/73 Nega tive -?-?-?-?-?-?-?-?-?-?-?-?- Negative 160 -?-?-?-?-?-?-?-?-?-?-?-?- SM- patient cons ideirtanisha barraza, asking about timing between visits. discussed flexibility of 4-6 weeks for appoitnemt in 1st or 2nd trimester SM- patient considering doul a, asking about timing between visits. discussed flexibility of 4-6 weeks for appoitnemt in 1st or 2nd trimester 01/19/23 -?-?-?-?-?-?-?-?-?-?-?-?- 18w 1d 238 lb 2 oz 112/68 Nega tive -?-?-?-?-?-?-?-?-?-?-?-?- Negative 163 -?-?-?-?-?-?-?-?-?-?-?-?- MH-No VB or naus ea. denies concerns. US today 03/01/23 -?-?-?-?-?-?-?-?-?-?-?-?- 24w 0d 248 lb 120/78 Negative -?-?-?-?-?-?-?-?-?-?-?-?- Negative 160 -?-?-?-?-?-?-?-?-?-?-?-?- LC- no vb/ctx/lo f. good fm. 28 week labs today, using fresh test. 03/23/23 -?-?-?-?-?-?-?-?-?-?-?-?- 27w 1d 251 lb 6 oz 117/72 Nega tive -?-?-?-?-?-?-?-?-?-?-?-?- Negative 158 30 Cephalic 0 -?-?-?-?-?-?-?-?-?-?-?-?- 0 KW-no vb /lof. good fm. having strong contractions on and off the last week. US done and reassuring findings. Urine culture done. KW-no vb/lof. good fm. yovana vieira strong contractions on and off the last week. no changes in vaginal discharge, reports adequate hydration. US done and reassuring findings. Urine culture done. KW-no vb/lof. good fm. yovana vieira strong contractions on and off the last week. no changes in vaginal discharge, reports adequate hydration. US done and reassuring findings. Urine and vaginal culture done. Discussed evaluation in WP. Declines at this time as she is not manuela now and feeling good fm. plans to follow up in 2 weeks. 04/06/23 -?-?-?-?-?-?-?-?-?-?-?-?- 29w 1d 256 lb 6 oz 126/79 Nega tive -?-?-?-?-?-?-?-?-?-?-?-?- Negative 155 32 -?-?-?-?-?-?-?-?-?-?-?-?- KW- no vb/lof/ct x. good fm. no longer having strong contractions. feeling good. labs reviewed. Growth US ordered 04/19/23 -?-?-?-?-?-?-?-?-?-?-?-?- 31w 0d 259 lb 119/76 Negative -?-?-?-?-?-?-?-?-?-?-?-?- Negative 150 33 -?-?-?-?-?-?-?-?-?-?-?-?- LC- no lof/ctx/v b. good fm. obtaining growth at 36 weeks.hx of LGA. urine culture sent for urinary urgency and pressure. 05/07/23 -?-?-?-?-?-?-?-?-?-?-?-?- 33w 4d 259 lb 8 oz 128/82 Nega tive -?-?-?-?-?-?-?-?-?-?-?-?- Negative 150 38 2 -?-?-?-?-?-?-?-?-?-?-?-?- 40 -3 KW-no vb/l of/regular ctx. having ctx randomly throughout week, no urinary sx. has 36 week US scheduled. Discussed in depth Betamethasone injection for well being. Would like to discuss with before agreeing. Start weekly visits. Not currently manuela-declines NST, having good movement. KW-no vb/lof/regular ctx. lord ving ctx randomly throughout week, no urinary sx. has 36 week US scheduled additional US ordered for S>D. Discussed in depth Betamethasone injection for well being. Would like to discuss with before agreeing. Start weekly visits. Not currently manuela-declines NST, having good movement. KW-no vb/lof/regular ctx. lord ving ctx randomly throughout week, no urinary sx. has 36 week US scheduled additional US ordered for S>D. Discussed in depth Betamethasone injection for well being. Would like to discuss with before agreeing. Start weekly visits. Not currently manuela-declines NST, having good movement. Agrees to evaluation in WP when is off work. 05/18/23 -?-?-?-?-?-?-?-?-?-?-?-?- 35w 1d 263 lb 8 oz 119/75 Nega tive -?-?-?-?-?-?-?-?-?-?-?-?- Negative 140 40 -?-?-?-?-?-?-?-?-?-?-?-?- kw-no vb/lof/reg ular ctx. good fm. discussed labor preferences 05/24/23 -?-?-?-?-?-?-?-?-?-?-?-?- 36w 0d 267 lb 117/81 Negative -?-?-?-?-?-?-?-?-?-?-?-?- Negative 150 39 Cephalic 2 .5 -?-?-?-?-?-?-?-?-?-?-?-?- 40 -3 LC- no vb/ lof/ctx. good fm.gbs collected. growth scan completed today. 8#7oz currently. hx of 11# LC- no vb/lof/ctx. good fm.g bs collected. growth scan completed today. 8#7oz currently. hx of 11#3oz. will have next appt with physician. reviewed need of involvement in care as a TOLAC candidate. LC- no vb/lof/ctx. good fm.g bs collected. growth scan completed today. EFW 8#7oz currently. hx of 11#3oz . will have next appt with physician. reviewed need of involvement in care as a TOLAC candidate, LGA, hemorrhage history. 06/02/23 -?-?-?-?-?-?-?-?-?-?-?-?- 37w 2d 268 lb 2 oz 129/84 Nega tive -?-?-?-?-?-?-?-?-?-?-?-?- Negative 154 39 Cephalic 3 .5 -?-?-?-?-?-?-?-?-?-?-?-?- 50 -3 for JV: good Fm. NO VB, lof. More pressure, low backache. No irreg CTX. Requested sweep and declined due to WP censes. Will discuss with JYe and call patient end of day. 06/03/23 -?-?-?-?-?-?-?-?-?-?-?-?- 37w 3d 267 lb 6 oz 118/83 Nega tive -?-?-?-?-?-?-?-?-?-?-?-?- Negative 140 Cephalic 3.5 -?-?-?-?-?-?-?-?-?-?-?-?- 50 -2 SM- no vb lof good fm membranes swept 06/10/23 -?-?-?-?-?-?-?-?-?-?-?-?- 38w 3d 269 lb 2 oz 128/84 Nega tive -?-?-?-?-?-?-?-?-?-?-?-?- Negative 145 42 Cephalic 4 -?-?-?-?-?-?-?-?-?-?-?-?- 60 -2 kw-good fm . kw-good fm. having some cont ractions kw-good fm. having some cont ractions. ROM collected for increased vaginal discharge. membrane sweep today and labor precautions. IOL set up for tues at 39.1 weeks. NST FHR Rate Baby A Baseline: 140 Variability:: Moderate Accelerations:: 15 x 15 Decelerations:: None NST Reactive:: Yes FHR Category:: Category I Uterine Activity:: irregular ROS Constitutional Constitutional: Denies change in weight, fatigue, fever(s), headache(s), poor appetite or weakness Eyes Eyes: Denies blurry vision, change in vision, floaters, seeing flashes or spots in vision ENT HEENT: Denies dizziness, headache(s), loss taste/smell or sore throat Cardiovascular Cardiovascular: Denies chest pain, dizziness, dyspnea, irregular heart rhythm, lightheadedness, palpitations or rapid heart rate Respiratory/Chest Respiratory/Chest: Denies change in mental status, chest tightness, cough, dyspnea or breast pain Gastrointestinal Gastrointestinal: Denies anorexia, chewing difficulty, constipation, diarrhea or weight changes Genitourinary Genitourinary: Denies difficulty urinating, dysuria, flank pain, genital pain, urinary frequency or urinary urgency Musculoskeletal Musculoskeletal: Denies back pain, difficulty walking, extremity pain, joint pain, muscle cramps or muscle weakness Integumentary Integumentary: Denies lesions or unusual bruising Neurologic Neurologic: Denies abnormal movements, abnormal speech, dizziness, numbness, seizure-like activity, syncope or weakness Psychiatric Psychiatric: Denies behavioral changes, change in appetite, confusion, depression, homicidal ideation, suicidal ideation or suicidal thoughts Endocrine Endocrinology: Denies excessive sweating, polydipsia or polyuria Hematologic/Lymphatic Hematologic/Lymphatic: Denies anemia Allergic/Immunologic Allergic/Immunologic: Denies itchy eyes, lip swelling, throat swelling, tongue swelling or wheezing Physical Exam Const alert, oriented x3 and no apparent distress General Appearance: cooperative Orientation / Consciousness: awake HEENT normocephalic Neck full ROM Lymph Lymphatic: no lymphadenopathy noted Chest inspection of chest normal Resp normal respiratory effort and normal air movement Effort and Inspection: able to speak in complete sentences and symmetric chest movement GI soft to palpation and non-tender Inspection: gravid Palpation: soft; Negative for tender external exam normal Manual OB Exam: estimated gestational size large, presentation cephalic, dilated 5, effaced 70 and station -2 Back/Spine normal to inspection Extremity normal to inspection and full ROM Skin no rashes or lesions noted Psych mental status grossly normal Appearance: grossly normal Speech: normal speech Labs Labs Labs: Blood Type O POSITIVE Antibody Screen NEGATIVE Hct 37.4 % (37-47) Hgb 11.8 g/dL (12.0-15.0) L Obstetrics Ultrasound Syphilis Total Ab Non-reactive Rubella IgG Antibody Reactive (Nonreactive) Hep Bs Antigen Non-Reactive (Nonreactive) Hepatitis C Antibody Non-Reactive (Nonreactive) Chlamydia DNA (VISH) Negative (Negative) N.gonorrhoeae DNA (VISH) Negative (Negative) HIV 1&2 Antibody Non-Reactive (Nonreactive) Glucose 1 Hr 50 gm 127 mg/dL (70-140) Group B Strep DNA Negative (Negative) Assessment & Plan (1) Encounter for induction of labor: COMMENT: 39.1 IOL EFW 4578 Hx PPH PLAN: Patient presents IOL, plan management for with pitocin/AROM. Pain management: plans no epidural. GBS negative. Management of any complications: PPH, PPD, TOLAC [facility] and made any clinically relevant updates. (2) Uterine size date discrepancy : COMMENT: EFW 4578 at 39 weeks-IOL (3) History of macrosomia in in prior , currently : COMMENT: 11+ lb 36 week US ordered (4) History of depression: (5) Obesity affecting : QUALIFIERS: Trimester: second trimester Obesity type affecting : unspecified obesity Qualified Code(s): O99.212 - Obesity complicating , second trimester COMMENT: encouraged healthy weight gain (6) Hx successful (vaginal after ), currently : COMMENT: desires with retail grocer if available. had successful with daughter [id number] at 40 weeks (7) Hx of hemorrhage, currently : COMMENT: 2nd, 3rd and 5th . wants pitocin (8) Hx of transfusion of whole blood: COMMENT: after second delivery. (blood type 0 positive) (9) Supervision of high-risk : QUALIFIERS: Trimester: third trimester Qualified Code(s): O09.93 - Supervision of high risk , unspecified, third trimester COMMENT: PRR (done at [place]) , MORAIMA 06/21/23 PC Nereyda Morrison Nya&Ruth(twins), Guerreromatilde Charlie (10) : QUALIFIERS: Weeks of gestation: 38 weeks Qualified Code(s): Z3A.38 - 38 weeks gestation of COMMENT: declines genetic & carrier testing. nl anatomy. GBS negative Charges/Coding Multi Select Codes Urinary/Genital Urinary/Genital CPT Codes: No Charge
[2023-06-15] MEDS: Lactated Ringers 1,000 ML 50 ML IV (07:45)
[2023-06-15 08:06] LABS: Absolute Lymphocyte Count 1.66 X10^3/uL (0.83-4.51); Absolute Neutrophil Count 8.1 X10^3/uL (2.0-7.7); Basophil# 0.03 X10^3/uL; Basophil% 0.3 % (0-1); Eosinophil# 0.16 X10^3/uL; Eosinophils% 1.4 % (0-5); Hematocrit 32.9 % (37-47); Hemoglobin 10.5 g/dL (12.0-15.0); Lymphocyte # 1.66 X10^3/ul (0.83-4.51); Mean Corp Hgb Conc 31.9 g/dL (32-36); Mean Corpuscular Hgb 25.1 pg (27.0-32.0); Mean Corpuscular Volume 78.5 fL (81-99); Mean Platelet Vol. 11.2 fl (6.2-12.0); Monocyte# 0.96 X10^3/uL; Monocyte% 8.7 % (0-10); NRBC Flagged by Analyzer 0 % (0-5); Neutrophil # 8.14 X10^3/uL (2.7-7.7); Neutrophil % 73.6 % (47-70); Platelet Count 216 K/mm3 (150-450); RBC Distribution Width CV 15.8 % (11.6-14.6); RBC Distribution Width SD 44.4 fl (35.1-43.9); Red Blood Count 4.19 M/mm3 (4.2-5.4); White Blood Count 11.1 K/mm3 (4.4-11.0)
[2023-06-15] MEDS: Oxytocin 15 Units/NS 250ml 15 UNITS/250 ML IV.SOLN 2 UNITS IV (08:06)
[2023-06-15] MEDS: CHLORHEXIDINE GLUC 2% CLOTH 1 EACH TOWELETTE TOPICAL (08:07)
[2023-06-15] MEDS: Mag Hydrox/Al Hydrox/Simeth 30 ML UDC PO (09:25)
--- NOTE | 2023-06-15 12:58 | PN_ITS ---
Progress Note Coping well with contractions current tracing: FHT: 130 Moderate variability reactive no decelerations category I tracing Fenton: 2-3 Contractions Membranes:ruptured 1250 clear SVE:7/70/-2 A/P: Continue with position changes Titrate pitocin per protocol Epidural per anesthesia Anticipate Dr Ogden aware of above assessment and agrees with plan of care. plans to be in room for delivery with CNM Assessment & Plan Assessment/Plan (1) Encounter for induction of labor: (2) contractions: (3) Uterine size date discrepancy : (4) History of macrosomia in in prior , currently : (5) Uterine contractions: (6) History of depression: (7) Obesity affecting : QUALIFIERS: Trimester: second trimester Obesity type affecting pr egnancy: unspecified obesity Qualified Code(s): O99.212 - Obesity complicating , second trimester (8) Hx successful (vaginal after ), currently : (9) Supervision of high-risk : QUALIFIERS: Trimester: third trimester Qualified Code(s): O09.93 - Supervision of high risk , unspecified, third trimester (10) : QUALIFIERS: Weeks of gestation: 38 weeks Qualified Code(s): Z3A.38 - 38 weeks gestation of (11) Hx of hemorrhage, currently : (12) Hx of transfusion of whole blood: Multi Select Codes Urinary/Genital Urinary/Genital CPT Codes: No Charge
[2023-06-15 14:10] LABS: Syphilis Antibodies Non-reactive
[2023-06-15] MEDS: Oxytocin 15 Units/NS 250ml 15 UNITS/250 ML IV.SOLN 83 UNITS IV (16:26)
--- NOTE | 2023-06-15 16:30 | OP.PCM_ITS ---
Assessment & Plan (1) Encounter for induction of labor: COMMENT: 39.1 IOL EFW 4578 Hx PPH (2) History of macrosomia in in prior , currently : COMMENT: 11+ lb infant 36 week US ordered (3) Obesity affecting : QUALIFIERS: Trimester: second trimester Obesity type affecting : unspecified obesity Qualified Code(s): O99.212 - Obesity complicating , second trimester COMMENT: encouraged healthy weight gain (4) Hx successful (vaginal after ), currently : COMMENT: desires with heel varnisher if available. had successful with daughter [id number] at 40 weeks (5) Supervision of high-risk : QUALIFIERS: Trimester: third trimester Qualified Code(s): O09.93 - Supervision of high risk , unspecified, third trimester COMMENT: PRR (done at [place]) , MORAIMA 06/21/23 PC Nereyda Morrison Nya&Ruth(twins), Jose Charlie (6) : QUALIFIERS: Weeks of gestation: 38 weeks Qualified Code(s): Z3A.38 - 38 weeks gestation of COMMENT: declines genetic & carrier testing. nl anatomy. GBS negative (7) Hx of hemorrhage, currently : COMMENT: 2nd, 3rd and 5th . wants pitocin (8) Hx of transfusion of whole blood: COMMENT: after second delivery. (blood type 0 positive) (9) Shoulder dystocia during labor and delivery: COMMENT: moderate- 1min 10 sec storm suprapubic woodscrew delivery posterior shoulder SM (10) , delivered, current hospitalization: COMMENT: moderate SD- 1min 10 sec storm suprapubic woodscrew delivery posterior shoulder SM 39 IOL LGA Maternal Data Information MORAIMA Calculator Estimated Delivery Date Method Current WG Current Estimate 06/21/23 Ultrasound #1 39w 1d Other Estimates 06/27/23 LMP (Certain) 38w 2d Vaginal Delivery Operative Information Date of Procedure: 06/15/23 Pre-Operative Diagnosis: see a/p diagnoses Post-Operative Diagnosis: same Surgery / Procedure Performed: insurance agent #1: Brook Gaffney Type of Anesthesia: None Special Medications: none Estimated Blood Loss: 200 Fluids Replaced: crystalloid Findings Description of Procedure: Patient began pushing and delivered the head in the ARISTEO presentation for the heel varnisher Brook Gaffney with Dr. Ogden supervising at the bedside. The head was delivered atraumatically and after gentle downward traction on the head it was evident there was a shoulder dystocia and therefore Storm maneuver was inflated for 30 seconds. Suprapubic pressure was utilized. I stepped in myself to evaluate-attempted wood screw maneuver to rotate the right shoulder and possibly deliver the posterior arm this disimpacted the anterior shoulder and him to begin delivering and the posterior shoulder delivered first followed by the rest of the body and the anterior shoulder delivered without complication and the was placed on the maternal abdomen. Delayed cord clamping was employed for approximately 60 seconds. Cord was clamped and cut and gentle traction was applied to the cord and the placenta delivered spontaneously immediately following it was noted to be intact with three-vessel cord. The per ineum and vagina were inspected and noted to have no laceration. EBL was 200 cc. Patient and tolerated delivery well. Amniotic Fluid Description: Clear Placental Delivery Description: Spontaneous Placenta Disposition: [facility] Cord Vessel Description: 3 Vessels Cord Entanglement: None Delayed Cord Clamping: Yes Post Vaginal Delivery Medications Given After Delivery: IV Pitocin Episiotomy Description: None Complication Complications: - (moderate shoulder dystocia 1min 10 sec storm suprapubic woodscrew delivery posterior shoulder ) Multi Select Codes Urinary/Genital Urinary/Genital CPT Codes: 53046 delivery global pkg
--- NOTE | 2023-06-15 16:38 | DCINST_ITS ---
Discharge Instructions Diet Discharge Diet: No restrictions Activity Discharge Activity: Return to Normal Activity, May Not Drive (while taking narcotic pain medications.) and May Shower May resume sexual activity in: 4-6 weeks Dressing / Incision Call your doctor if your incision/area has: Continuous Slow Oozing, Sudden Increased Bleeding, Increased Pain/ Swelling, Increased Redness and Foul Smelling Discharge Follow Up Care Please Follow Up With: Mercedes Ogden MD When: Call [phone] to make an appointment with your doctor in 6 weeks. If you had elevated blood pressure or 4th degree laceration, you will need to be seen in 2 weeks. Test Results: Test results from this visit will be discussed in further detail at your follow- up appointment, if applicable. Discharge Plan Admission Admit Date/Time: 06/15/23 07:10 Attending Provider: Brook Gaffney Primary Care Provider: Care Physician,Makayla Primary Discharge Orders/Prescriptions Prescriptions: No Action cyanocobalamin-liver extract Tablet 1 tab PO Probiotic 15 billion cell capsule 1 cap PO mecobalamin (vitamin B12) [B12 Active] 1,000 mcg tablet,chewable 1,000 mcg PO DAILY Referrals / Follow Up: Care Physician,No Primary [Primary Care Provider] - Disposition Disposition (needs filled in before D/C Order can be placed): Home, Self Care
[2023-06-15] MEDS: 0.9% Saline Lock 10 ML Syringe IV (19:32)
[2023-06-15] MEDS: Acetaminophen 500 MG Tablet 1000 MG PO (19:32)
--- NOTE | 2023-06-15 20:30 | NURSING ---
patient asked this RN to look at clot patient passed when using the restroom. this RN called charger tester talita to bedside to examine clot. patient asymptomatic. fundus firm. this RN will continue monitor and instructed patient to let this RN know if she passes another clot.
[2023-06-16] VITALS (9 sets, daily range): BP systolic 115–134; BP diastolic 55–87; PULSE 88–102; RESP 15–18; TEMP 36.6–37; O2SAT 95–97
[2023-06-16] MEDS: Acetaminophen 500 MG Tablet 1000 MG PO (04:25)
--- NOTE | 2023-06-16 07:38 | PN.OBGYN_ITS ---
Subjective Subjective Patient doing well without complaints. Tolerating PO. Ambulating and voiding without difficulty. Feeding well. Denies chest pain, shortness of breath, calf pain/swelling, fevers, chills, lightheadedness. Objective Data Objective Data Vital Signs: Vital Signs Temp Pulse Resp BP Pulse Ox O2 Del Method 98.1 F 94 15 115/55 L 96 Room Air 06/16/23 04:00 06/16/23 04:00 06/16/23 04:00 06/16/23 04:00 06/16/23 04:00 06/16/23 04:00 Oxygen Delivery Method Room Air Weight: 270 lb 2 oz Body Mass Index (BMI) 43.6 Intake & Output: Intake and Output for Last 24 Hours 06/14/23 06/15/23 06/16/23 23:59 23:59 23:59 Intake Total 895.30 / 895.30 Output Total 1999 Balance -1104.70 / -1104.70 Lab / Micro Data 06/15/23 07:45 Labs: Laboratory Results - last 24 hr 06/15/23 07:45: WBC 11.1 H, RBC 4.19 L, Hgb 10.5 L, Hct 32.9 L, MCV 78.5 L, MCH 25.1 L, MCHC 31.9 L, RDW Std Deviation 44.4 H, RDW Coeff of Rasta 15.8 H, Plt Count 216, MPV 11.2, Immature Gran % (Auto) 1.000 H, Neut % (Auto) 73.6 H, Lymph % (Auto) 15.0 L, Barbour % (Auto) 8.7, Eos % (Auto) 1.4, Baso % (Auto) 0.3, Absol cooper Neuts (auto) 8.1 H, Absolute Lymphs (auto) 1.66, Nucleated RBC % 0, Syphilis Total Ab Non-reactive, Blood Type O POSITIVE, Antibody Screen NEGATIVE, Crossmatch See Detail ROS Constitutional Constitutional: Denies chills, fatigue, fever(s), poor appetite or weakness Eyes Eyes: Denies blurry vision, change in vision, seeing flashes or spots in vision ENT HEENT: Denies dizziness, headache(s), loss taste/smell or sore throat Cardiovascular Cardiovascular: Denies chest pain, dizziness, dyspnea, irregular heart rhythm, palpitations or rapid heart rate Respiratory/Chest Respiratory/Chest: Denies chest tightness, cough, dyspnea or breast pain Gastrointestinal Gastrointestinal: Denies abdominal pain, constipation or vomiting Genitourinary Genitourinary: Denies dysuria or flank pain Musculoskeletal Musculoskeletal: Denies difficulty walking, joint pain, limited range of motion or numbness Neurologic Neurologic: Denies abnormal movements, abnormal speech, dizziness, numbness, seizure-like activity or syncope Psychiatric Psychiatric: Denies anxiety, behavioral changes, change in appetite, confusion, depression or suicidal thoughts Physical Exam Const alert, oriented x3 and no apparent distress General Appearance: cooperative and comfortable Resp normal respiratory effort Cardio regular rate GI normal to inspection, nondistended, normoactive bowel sounds GI Narrative: uterus is firm below umbilicus Palpation: soft Back/Spine no CVA tenderness and thoraco-lumbar ROM normal Extremity normal to inspection, no clubbing, cyanosis or edema, no calf tenderness and no pedal edema Psych mental status grossly normal, thought process normal, cooperative, affect normal, speech normal, activity/motor behavior normal, denies homicidal ideation and denies suicidal ideation Assessment & Plan (1) , delivered, current hospitalization: COMMENT: moderate SD- 1min 10 sec be suprapubic woodscrew delivery posterior shoulder SM 39 IOL LGA PLAN: Plan s/p PPD #1 1. routine post delivery care 2. breast feeding- support given 3. rh positive 4. rubella immune 5. h/o pp hem. keep iv in for total of 24 hrs before dc-ing
--- NOTE | 2023-06-16 13:56 | CASEMGMT ---
Social Work Assessment Labor and Delivery Unit Patient Address:[address] [place] [address] Phone number: [phone] Date of Referral: 06/15/23 Time of Referral:? 1924 Referred By: Brook Gaffney Date of Intervention: ??06/16/23 Time of Intervention:? 1200 Reason for Referral:? mother's father is considered to be an addict/ alcoholic hx PPD Sw completed chart review and acknowledges social work consult entered. Sw presented to bedside and introduced self to mother of baby (NIGEL- Cheli) and father of baby (RED- Charlie). Sw explained sw role during hospitalization and completed psychosocial assessment. History obtained from: medical records, MOB and FOB Household composition: Currently residing in the family home is RED MANNING, their 5 older daughters (Tamiko, Nereyda, Margi/Ruth, and Jose) and now baby boy. Parents deny any housing concerns, report that housing is safe and secure. Patient's parent/guardian status:? ?RED states that he and NIGEL have been together for 14 years, they are high school sweethearts. No concerns reported regarding domestic violence or intimate partner violence. Medical History: ?NIGEL is 33 year old female who is 6- para 6. NIGEL received routine care during with [facility]. NIGEL presented to hospital for induction of labor and delivered baby on 06/15/23 at 39 weeks gestation via vaginal delivery. Baby boy (surprise gender and first boy for parents) who is named, Edgar Guerra, was born weighing 10lb 14oz and his apgars were 8 and 9 at one and five minutes of life respectfully. NIGEL states that baby will be followed by Dr. Gallagher for pediatrics. NIGEL is breast feeding and states that it is going well. Educational Status:? Both parents graduated from high school, no concerns with reading, learning or comprehension. NIGEL states that she has obtained two bachelors degrees. Financial Status: RED is gainfully employed outside of the home for his family's business. He works as a civilian technician. FOB states that he is able to take off as much time as he needs now that baby has been born. NIGEL is a stay at home mom, she home schools the children. Infant Supplies:?? Parents report they have obtained all necessary baby supplies, including: clothes, car seat, safe sleep space, diapers and wipes. NIGEL states that she bought a breast pump but is also obtaining one through insurance. Childcare/Caregiver(s):? NIGEL will be the primary caregiver to baby, along with FOB when he is not at work. Parent report they have family members who are close and are able to help with childcare when required. Transportation:?? No barriers to transportation at this time. Programs/Agencies Involved: ???No linkage to community resources at this time. List of local community resources provided for parents should a need arise post discharge. Children Services/Legal Issues:??? No history of involvement, no issues or concerns warranting a referral to be made at this time. Behavioral Health Issues: ??Mental Health History:?FOB denies mental health history. NIGEL states that she does not have a mental health history aside from experiencing the baby blues/ post depression after her first two children were born. NIGEL states that she required a lot of hormones for her first and second pregnancies, and believes that when she stopped taking those hormones after the baby was born it directly impacted her mental health. MOB states that she has never struggled after a delivery since those times. MOB states that she is aware of signs and symptoms of baby blues, depression and anxiety to be on the lookout for. ?? Substance Use History: MOB denies substance use prior to and during . ?? Family History:?MOB states that her father has always struggled with alcoholism. MOB states that growing up she did not have a good relationship with her father because of his drinking problems. MOB states that since her children have been born her father has stopped drinking in excess, and only drinks on the weekends now. NIGEL denies significant mental health history for her family or FOB. ? Drug Screens: ??No urine screens observed in chart review. Family/Social Stressors:? Parents deny any stressors at this time. Support Systems: MOB states that both sets of families are extremely supportive. Depression/Shaken Baby/Safe Sleeping:? Sw educated parents on signs and symptoms of baby blues and depression and anxiety to be on the lookout for. Parents express understanding. Sw educated parents on shaken baby prevention and ABCs of safe sleep. Parents express understanding. ASSESSMENT:? Both parents at bedside and active in care. MOB and baby admitted following labor and delivery. Both parents engaged in conversation and completion of psychosocial assessment. FOB was observed to be a strong support person for MOB. MOB and FOB have been together for a long time and FOB states that he is able to recognize when MOB is struggling with her mental health. Parents recognize that maternal grandpa alcohol use is ongoing issue, and do not need him as a resource for childcare assistance. Parents were thankful for sw involvement and support and receptive to information and resources provided. PLAN:?MOB and baby to be discharged when medically ready. ?No other services requested or indicated. Yarely Tyson, ENGINEERING AND OPERATIONS DIRECTOR, DEPARTMENT MANAGER
== END 2023-06-16 16:55 | disposition home or self-care (01) | DRG 807 ==
PROVIDERS: Admitting Provider Advanced Practice Midwife; Referring Provider Advanced Practice Midwife; Visit Provider Advanced Practice Midwife
DX: O34.219 Maternal care for unspecified type scar from previous cesarean delivery (principal); Z37.0 Single live birth; O26.843 Uterine size-date discrepancy, third trimester; O99.214 Obesity complicating childbirth; O66.0 Obstructed labor due to shoulder dystocia; O36.63X0 Maternal care for excessive fetal growth, third trimester, not applicable or unspecified; Z3A.39 39 weeks gestation of pregnancy; Z87.59 Personal history of other complications of pregnancy, childbirth and the puerperium
CPT/HCPCS: 59025; 59050; 85025; 86780; 86850; 86900; 86901; 86920; 86921; 86922; 99221; J7120; A4216; G0378